=== PATIENT | female | born 1960 | race African-American/Black ===

== ENCOUNTER 2025-05-16 09:30 | Inpatient (IN) | payer OTHER ==
[~2025-05-16] VITALS: Ht 162.6 cm; Wt 90.7 kg
[2025-05-16 08:56] LABS: URINE APPEARANCE Clear; URINE BILIRRUBIN Negative (NEGATIVE); URINE BLOOD Negative; URINE COLOR Yellow; URINE GLUCOSE Negative (NEGATIVE); URINE KETONE Negative (NEGATIVE); URINE LEUKOCYTE Large; URINE NITRATE Negative; URINE PROTEIN Negative (NEGATIVE); URINE UROBILINOGEN 0.2 E.U./dl
[2025-05-16 09:00] LABS: BASO % 0.7 % (0.1-1.2); EOS # 0.17 (0.04-0.54); EOS % 3.7 % (0.7-7.0); LYMPH # 1.39 (1.18-3.74); LYMPH % 30.2 % (19.3-53.1); MEAN PLATELET VOLUME 9.70 fl (9.4-12.4); MONO # 0.49 (0.24-0.82); MONO % 10.6 % (4.7-12.5); NEUT # 2.52 (1.56-6.13); NEUT % 54.6 % (34.0-71.1); RED CELL DISTRIBUTION WIDTH 13.5 % (11.6-14.4); URINE BACTERIA 575.9 uL (0.0-1933); URINE EPITHELIAL CELLS 19.9 uL (0.0-38.8); URINE RBC 2.9 uL (0.0-20.8); URINE WBC 63.2 uL (0.0-23.2)
[2025-05-16 09:08] LABS: URINE CAST 0.14 uL (0.0-1.40)
[2025-05-16 09:13] LABS: COVID-19 AG NEGATIVE (NEGATIVE)
[2025-05-16 09:29] VITALS: BP 180/110
[~2025-05-16 09:30] MED LIST: ANASTROZOLE1 MG PO; LIPITOR20 MG; LOSARTAN-HCTZ1 EAC1 PO; MEDROLPACK PO; METFORMIN HCL500 M3 PO; TOPROL XL25 M1; ZESTRIL20 MG PO
[2025-05-16 09:31] LABS: INR 0.97
[2025-05-16 09:47] LABS: ALT/SGPT 31.0 U/L (12-78); AST/SGOT 22.0 U/L (15-37); BILIRUBIN TOTAL 0.56 mg/dL (0.3-1.2); BUN CREA RATIO 18.0 (7.0-25.0); CHOL HDL RATIO 2.9 (0-5.0); CREATININE SERUM 0.68 mg/dL (0.55-1.02); GFR 86.57; GLOBULINA 3.6 G/DL (2.4-3.5); GLUCOSE FASTING 127.0 mg/dL (65-100); HDL 77.0 mg/dl (40-60); LDL 132.0 mg/dl (0-130); OSMOLALITY SERUM 284.0 MOSM/KG (275-295); VLDL 16.0 (0-39)
[2025-05-22] MEDS ORDERED: KETOROLAC TROMETHAMINE 60 MG VIAL IM ONE (12:02)
[2025-05-22] MEDS ORDERED: POVIDONE-IODINE 118 ML BOTT TOP ONE (12:04)
[2025-05-22] MEDS ORDERED: BUPIVACAINE HCL/MPF 0.5% 30ML VIAL ONE (12:04)
[2025-05-22] MEDS ORDERED: VANCOMYCIN HCL 1,000 MG VIAL ONE (12:05)
[2025-05-22] MEDS ORDERED: LIDOCAINE HCL 1%/EPINEPHRINE 20ML VIAL IJ ONE (12:05)
[2025-05-22] MEDS ORDERED: TRANEXAMIC ACID 100MG/1ML (1000MG) AMPUL IV ONE ×2 (13:00)
[2025-05-22] MEDS ORDERED: CEFAZOLIN SODIUM 1,000 MG VIAL IV ONE (13:15)
[2025-05-22] MEDS ORDERED: INSULIN LISPRO 1,000 UNIT/10 ML UNITS SUBCUTANEO PRN (16:30)
[2025-05-22] MEDS ORDERED: DEXTROSE 50 % IN WATER 0.5 G/ML DISP.SYRIN IV PRN (16:30)
[2025-05-22] MEDS ORDERED: ENALAPRILAT DIHYDRATE 1.25 MG/ML VIAL IV PRN (16:30)
[2025-05-22] MEDS ORDERED: ONDANSETRON HCL 2 MG/ML VIAL IV PRN (18:15)
[2025-05-22] MEDS ORDERED: MORPHINE SULFATE 4 MG/ML CARTRIDGE IV PRN (18:15)
[2025-05-22] MEDS ORDERED: SODIUM CHLORIDE 0.45 % 1,000 ML IV SCH (18:15)
[2025-05-22] MEDS ORDERED: OxyCODONE HCL 5 MG TABLET (ROXICODONE) PO PRN (18:15)
[2025-05-22 21:02] VITALS: BP 146/82; O2SAT 98
[2025-05-23] MEDS ORDERED: ACETAMINOPHEN 500 MG GEL..CAP PO SCH
[2025-05-23 00:04] VITALS: BP 168/86; O2SAT 100
[2025-05-23] MEDS ORDERED: CEFAZOLIN SODIUM 1,000 MG VIAL IV SCH (01:00)
[2025-05-23] MEDS ORDERED: GABAPENTIN 300 MG CAPSULE PO SCH (01:00)
[2025-05-23 06:21] VITALS: BP 127/74
[2025-05-23 06:50] LABS: BASO % 0.4 % (0.1-1.2); EOS # 0.22 (0.04-0.54); EOS % 4.1 % (0.7-7.0); LYMPH # 0.98 (1.18-3.74); LYMPH % 18.3 % (19.3-53.1); MEAN PLATELET VOLUME 9.70 fl (9.4-12.4); MONO # 0.60 (0.24-0.82); MONO % 11.2 % (4.7-12.5); NEUT # 3.52 (1.56-6.13); NEUT % 65.8 % (34.0-71.1); RED CELL DISTRIBUTION WIDTH 13.1 % (11.6-14.4)
[2025-05-23] MEDS ORDERED: PERCOCET 5-3251 EACH PO (07:52)
[2025-05-23] MEDS ORDERED: CEFADROXIL500 MG PO (07:52)
[2025-05-23] MEDS ORDERED: ELIQUIS2.5 MG PO (07:52)
[2025-05-23 08:24] VITALS: BP 155/76; O2SAT 99
[2025-05-23] MEDS ORDERED: SENNOSIDES 1 TAB TABLET PO SCH (09:00)
[2025-05-23] MEDS ORDERED: LISINOPRIL 20 MG TABLET PO SCH (09:00)
[2025-05-23] MEDS ORDERED: ATORVASTATIN CALCIUM 20 MG TABLET PO SCH (09:00)
[2025-05-23] MEDS ORDERED: LOSARTAN/HYDROCHLOROTHIAZIDE 1 UDTAB TABLET PO SCH (09:00)
[2025-05-23] MEDS ORDERED: APIXABAN 2.5 MG TABLET PO SCH (09:00)
[2025-05-23] MEDS ORDERED: METOPROLOL SUCCINATE 50 MG TAB.SR.24H PO SCH (09:00)
[2025-05-23] MEDS ORDERED: Cyanocobalamin/Mecobalamin 1 TAB.SL SL SCH (12:09)
[2025-05-23] MEDS ORDERED: SOD FERRIC GLUC COMPLX/SUCROSE 62.5 MG/5 ML AMPUL IV SCH (12:09)
[2025-05-23 13:59] LABS: COVID-19 AG NEGATIVE (NEGATIVE)
[2025-05-24 00:30] VITALS: BP 124/65; O2SAT 97
[2025-05-24 07:37] LABS: BASO % 0.1 % (0.1-1.2); EOS # 0.00 (0.04-0.54); EOS % 0.0 % (0.7-7.0); LYMPH # 1.00 (1.18-3.74); LYMPH % 8.9 % (19.3-53.1); MEAN PLATELET VOLUME 10.00 fl (9.4-12.4); MONO # 0.93 (0.24-0.82); MONO % 8.2 % (4.7-12.5); NEUT # 9.31 (1.56-6.13); NEUT % 82.4 % (34.0-71.1); RED CELL DISTRIBUTION WIDTH 13.0 % (11.6-14.4)
[2025-05-24 07:56] VITALS: BP 132/72; O2SAT 96
[2025-05-24] MEDS ORDERED: IRON FUM,PS/FOLIC ACID/VITC/B3 1 CAP CAPSULE PO SCH (09:00)
[2025-05-24 16:00] VITALS: BP 162/80; O2SAT 97
== END 2025-05-24 20:59 | disposition home or self-care (01) | DRG 470 ==
LOC: O/R 05-22 09:00 → SURG 05-22 09:00 → SURH 05-22 09:30 → SURG 05-22 17:46
PROVIDERS: ADMIT Orthopaedic Surgery; ATTEND Orthopaedic Surgery
PROC: 0MNN0ZZ Release Right Knee Bursa and Ligament, Open Approach (ICD-10-PCS; 2025-05-22)
PROC: 0SUD07Z Supplement Left Knee Joint with Autologous Tissue Substitute, Open Approach (ICD-10-PCS; 2025-05-22)
PROC: 0SRD0J9 Replacement of Left Knee Joint with Synthetic Substitute, Cemented, Open Approach (ICD-10-PCS; principal; 2025-05-22 17:30)
DX: M17.12 Unilateral primary osteoarthritis, left knee (principal); D62 Acute posthemorrhagic anemia; I10 Essential (primary) hypertension